=== PATIENT | male | born 1970 | race Caucasian/White ===

== ENCOUNTER 2019-01-24 20:05 | Emergency (ER) | payer SELFPAY ==
[2019-01-24 20:19] VITALS: BP 134/96; O2SAT 99
[2019-01-24] MEDS ORDERED: Adacel Vial IM ONE ×2 (20:22→20:27)
--- NOTE | 2019-01-24 20:28 | ERPHSYRPT ---
- History of Present Illness Time Seen by Provider: 01/24/19 20:24 Source: patient Exam Limitations: no limitations Patient Subjective Stated Complaint: pt is alert and oriented. pt is ambulatory with a steady gait. pt comes in with a 7cm x1cm laceration to the front of his right lower leg. pt states he hurt himself with a chainsaw. laceration is not actively bleeding at this time. Triage Nursing Assessment: see above Physician History: 48-year-old white male arrives with complaint of laceration to his right mid stephenson symptoms since one hour. Patient states he accidentally lacerated his stephenson with a chainsaw. Past medical history negative Past surgical history negative. Social history positive tobacco use. Method of Injury: other (lacerated right leg with chainsaw) Occurred: just prior to arrival (one hour prior to arrival) Severity of Pain-Max: moderate Severity of Pain-Current: moderate Lower Extremities Pain: leg: right Modifying Factors: Improves With: nothing Associated Symptoms: none Allergies/Adverse Reactions: No Known Drug Allergies Allergy (Unverified 01/24/19 20:18) Home Medications: No Reportable Medications [No Reported Medications] 01/24/19 [History] Hx Tetanus, Diphtheria Vaccination/Date Given: No Immunizations Up to Date: Yes - Review of Systems Constitutional: No Fever, No Chills Eyes: No Symptoms Ears, Nose, & Throat: No Symptoms Respiratory: No Cough, No Dyspnea Cardiac: No Chest Pain, No Edema, No Syncope Abdominal/Gastrointestinal: No Abdominal Pain, No Nausea, No Vomiting, No Diarrhea Genitourinary Symptoms: No Dysuria Musculoskeletal: Other (laceration right mid anterior stephenson with chainsaw) Skin: Other (laceration right midanterior stephenson with chainsaw) Neurological: No Dizziness, No Focal Weakness, No Sensory Changes Psychological: No Symptoms Endocrine: No Symptoms - Past Medical History Pertinent Past Medical History: No - Past Surgical History Past Surgical History: No - Social History Smoking Status: Current every day smoker How long have you smoked: 30 years Drug Use: none - Nursing Vital Signs Nursing Vital Signs: Initial Vital Signs Temperature 98.5 F 01/24/19 20:12 Pulse Rate 116 H 01/24/19 20:12 Respiratory Rate 20 01/24/19 20:12 Blood Pressure 134/96 01/24/19 20:12 O2 Sat by Pulse Oximetry 99 01/24/19 20:12 Pain Scale Pain Intensity 3 - Physical Exam General Appearance: mild distress, alert Eyes, Ears, Nose, Throat Exam: moist mucous membranes Neck Exam: non-tender, supple Cardiovascular/Respiratory Exam: chest non-tender, normal breath sounds, regular rate/rhythm, no respiratory distress Gastrointestinal/Abdominal Exam: non-tender, guarding Back Exam: normal inspection, No vertebral tenderness Hips Exam: bilateral: non-tender, normal inspection, normal range of motion, no evidence of injury Legs Exam: right leg: other (7 cm transverse laceration right anterior stephenson mid stephenson), left leg: non-tender, normal inspection, no evidence of injury, bilateral leg: normal range of motion Knees Exam: bilateral knee: non-tender, normal inspection, normal range of motion, no evidence of injury Ankle Exam: bilateral ankle: non-tender, normal inspection, normal range of motion, no evidence of injury Foot Exam: bilateral foot: non-tender, normal inspection, normal range of motion , no evidence of injury DTR - Lower Extremities Exam: ankle (R): 2+, ankle (L): 2+ Neuro/Tendon Exam: normal sensation, normal motor functions Mental Status Exam: alert, oriented x 3, cooperative Skin Exam: other (7 cm transverse laceration left mid stephenson anteriorly) SpO2 Interpretation: normal (99%) SpO2: 99 - Course Nursing assessment & vital signs reviewed: Yes - Radiology Exams Right Lower Leg X-ray Interpretation: Reviewed by me (bony involvement right ant stephenson) Ordered Tests: Active Orders 24 hr Category Date Time Status Wound Care STAT Care 01/24/19 20:22 Active LOWER LEG Stat Exams 01/24/19 20:22 Completed Medication Summary Discontinued Medications Generic Name Dose Route Start Last Admin Trade Name Freq PRN Reason Stop Dose Admin Bacitracin Zinc 0.9 gm 01/24/19 20:22 01/24/19 21:41 Baciguent Packet TP 01/24/19 20:23 Not Given STAT ONE Bacitracin Zinc Confirm 01/24/19 21:20 Baciguent Packet Administered 01/24/19 21:21 Dose 1 gm .ROUTE .STK-MED ONE Cefazolin Sodium 1 g 01/24/19 20:59 01/24/19 21:11 Kefzol 1 Gm IM 01/24/19 21:00 1 g STAT ONE Administration Cefazolin Sodium Confirm 01/24/19 21:04 Kefzol 1 Gm Administered 01/24/19 21:05 Dose 1 g .ROUTE .STK-MED ONE Diphtheria/Tetanus/Acell Pertussis 0.5 ml 01/24/19 20:22 01/24/19 21:10 Adacel Vial IM 01/24/19 20:23 0.5 ml .ONCE ONE Administration Diphtheria/Tetanus/Acell Pertussis Confirm 01/24/19 20:27 Adacel Vial Administered 01/24/19 20:28 Dose 0.5 ml IM .STK-MED ONE Ketorolac Tromethamine Confirm 01/24/19 21:38 Toradol 30 Mg Injection Administered 01/24/19 21:39 Dose 60 mg .ROUTE .STK-MED ONE Lidocaine HCl 5 ml 01/24/19 20:22 01/24/19 21:41 Xylocaine 1% Hcl 20 Ml Mdv IJ 01/24/19 20:23 Not Given STAT ONE Lidocaine HCl Confirm 01/24/19 21:20 Xylocaine 1% Hcl 20 Ml Mdv Administered 01/24/19 21:21 Dose 5 ml .ROUTE .STK-MED ONE - Progress Progress: improved Progress Note: 01/24/19 21:34 48-year-old white male arrives with complaint of 7 cm laceration right anterior stephenson is put a dressing on it symptoms since one hour prior to arrival. Patient has full range of motion to his right lower extremity however unfortunately x-ray of the abdomen tibia shows a mid anterior soft tissue laceration with anterior tibial cortical fracture. Patient's wound was cleansed by nurse dressing is applied patient is given Kefzol 1 g IM he will be offered Toradol 60 mg IM. I've talked to trauma surgeon at [facility] he recommends that the patient be sent to [facility] so he can be evaluated by orthopedics. Patient will be sent to the emergency room - Departure Departure Disposition: Transfer Clinical Impression: Open fracture of right tibia Qualifiers: Encounter type: initial encounter Tibia location: shaft Open fracture type: open type I or II Fracture morphology: unspecified fracture morphology Qualified Code(s): S82.201B - Unspecified fracture of shaft of right tibia, initial encounter for open fracture type I or II Laceration of right lower leg Qualifiers: Encounter type: initial encounter Qualified Code(s): S81.811A - Laceration without foreign body, right lower leg, initial encounter Condition: Fair Critical Care Time: No Referrals: DOCTOR,NO FAMILY [Primary Care Provider] - Additional Instructions: proceed to regional emergency room Do not eat anything.
[2019-01-24] MEDS ORDERED: KEFZOL 1 GM IM ONE (20:59)
[2019-01-24] MEDS ORDERED: KEFZOL 1 GM ONE (21:04)
--- NOTE | 2019-01-24 21:16 | XRAY ---
Indication: Anterior lower leg laceration. Comparison: None 2 views of the right lower leg demonstrates mid anterior soft tissue laceration with anterior tibial cortical fracture. No other bony, articular, or soft tissue abnormalities.
[2019-01-24] MEDS: XYLOCAINE 1% HCL 20 ML MDV IJ ONE ×2 (21:19→21:41)
[2019-01-24] MEDS: BACIGUENT PACKET TP ONE ×2 (21:19→21:41)
[2019-01-24] MEDS ORDERED: BACIGUENT PACKET ONE (21:20)
[2019-01-24] MEDS ORDERED: XYLOCAINE 1% HCL 20 ML MDV ONE (21:20)
[2019-01-24] MEDS ORDERED: TORAdol 30 mg Injection ONE (21:38)
[2019-01-24] MEDS ORDERED: TORAdol 30 mg Injection IM ONE (22:01)
[2019-01-24 22:03] VITALS: PULSE 97
== END 2019-01-24 22:24 | disposition short-term general hospital (02) ==
LOC: ED 20:05
DX: S82.201B Unspecified fracture of shaft of right tibia, initial encounter for open fracture type I or II (principal); S81.811A Laceration without foreign body, right lower leg, initial encounter; W26.8XXA Contact with other sharp object(s), not elsewhere classified, initial encounter
CPT/HCPCS: 73590; 90471; 90715; 96372; 99285; J0690; J1885; A9270-GY